=== PATIENT | male | born 2000 | race Two or more races ===

== ENCOUNTER 2023-06-16 00:54 | Emergency (ER) | payer OTHER ==
[~2023-06-16] VITALS: Ht 175.3 cm; Wt 63.5 kg
[2023-06-16 01:51] VITALS: BP 131/72; TEMP 98; O2SAT 97
== END 2023-06-16 01:52 ==
LOC: ER 00:59
DX: F10.129 Alcohol abuse with intoxication, unspecified (principal); Y90.9 Presence of alcohol in blood, level not specified